=== PATIENT | female | born 1980 | race American Indian/Alaskan Native ===

== ENCOUNTER 2018-05-19 12:02 | Emergency (ER) | payer SELFPAY ==
[2018-05-19 12:21] VITALS: BP 126/77
== END 2018-05-19 12:30 | disposition left against medical advice (07) ==
LOC: ED 12:02
DX: R11.2 Nausea with vomiting, unspecified (principal); R19.7 Diarrhea, unspecified; Z53.21 Procedure and treatment not carried out due to patient leaving prior to being seen by health care provider

== ENCOUNTER 2020-02-01 14:42 | Emergency (ER) | payer SELFPAY ==
[2020-02-01 15:23] LABS: Basophils # (Auto) 0.1 K/mm3 (0.0-0.1); Basophils % (Auto) 1.1 % (0.0-1.8); Eosinophils # (Auto) 0.1 K/mm3 (0.0-0.4); Eosinophils % (Auto) 1.3 % (0.0-4.3); Lymphocytes # (Auto) 2.3 K/mm3 (1.2-5.4); Lymphocytes % (Auto) 32.3 % (13.4-35.0); Mean Corpuscular HGB Conc 32 % (30-34); Mean Corpuscular Volume 77 fl (79-97); Monocytes # (Auto) 0.3 K/mm3 (0.0-0.8); Monocytes % (Auto) 4.1 % (0.0-7.3); Platelet Count 228 K/mm3 (140-440); Red Cell Distribution Width 16.7 % (13.2-15.2)
[2020-02-01 15:45] LABS: Alanine Aminotransferase 14 units/L (7-56); Albumin 4.4 g/dL (3.9-5); BUN/Creatinine Ratio 6; Blood Urea Nitrogen 6 mg/dL (7-17); Calcium 9.5 mg/dL (8.4-10.2); Hemolysis Index 30
[2020-02-01] MEDS ORDERED: INSULIN REGULAR, HUMAN 100 UNITS/1 ML IV ONE (16:51)
--- NOTE | 2020-02-01 17:11 | Emergency Department Report ---
ED General Adult HPI - General Chief complaint: Hyperglycemia Stated complaint: SUGAR HIGH Time Seen by Provider: 02/01/20 16:50 Source: patient Mode of arrival: Ambulatory Limitations: No Limitations - History of Present Illness Initial comments: 39-year-old female with a past medical history of obesity and recent diagnosis of diabetes and hypertension (diagnosed yesterday) presents to the hospital with persistently elevated glucose. Patient has been having increased urinary frequency since August and dry mouth since November. Symptoms have progressively worsened and therefore she went to urgent care yesterday and had a sugar in the 500s. She was diagnosed with diabetes and sent to [facility] for treatment. Patient received insulin IV fluids in the ED and glucose was 240 prior to discharge. She was discharged on metformin 850 mg twice daily and glipizide 5m every morning. Patient took 2 doses of metformin and 1 dose of glipizide yesterday after discharge from the hospital and 1 dose of metformin and glipizide this a.m. her glucose has remained in the 400-500 and occasionally reading high on the monitor. Patient complains of some lightheadedness and persistent dry mouth. She is also states she has had very little food intake. She was not started on any blood pressure medication. patient denies pain nausea, vomiting - Related Data Previous Rx's Medication Instructions Recorded Last Taken Type Insulin NPH/Regular [Novolin 70/30] 15 unit SUB-Q TIDAC #1 vial 02/01/20 Unknown Rx Syringe-Needle,Insulin,0.5 ml 1 each MC TID #1 box 02/01/20 Unknown Rx [Insulin Syringe/Needle 0.5 ML] Allergies Allergy/AdvReac Type Severity Reaction Status Date / Time No Known Allergies Allergy Unverified 05/19/18 12:19 ED Review of Systems ROS: Stated complaint: SUGAR HIGH Other details as noted in HPI Comment: All other systems reviewed and negative ED Past Medical Hx - Past Medical History Previous Medical History?: Yes Hx Hypertension: Yes Hx Diabetes: Yes - Surgical History Past Surgical History?: Yes Additional Surgical History: C/S, tubal ligation - Social History Smoking Status: Never Smoker Substance Use Type: None - Medications Home Medications: Home Medications Medication Instructions Recorded Confirmed Last Taken Type Insulin NPH/Regular [Novolin 70/30] 15 unit SUB-Q TIDAC #1 vial 02/01/20 Unknown Rx Syringe-Needle,Insulin,0.5 ml 1 each TID #1 box 02/01/20 Unknown Rx [Insulin Syringe/Needle 0.5 ML] ED Physical Exam - General Limitations: No Limitations - Other Other exam information: General: No acute distress Head: Atraumatic Eyes: normal appearance ENT: Dry mucous membranes Neck: Normal appearance, no midline tenderness Chest: Clear to auscultation bilaterally CV: Regular rate and rhythm Abdomen: Soft, normal bowel sounds, nontender, nondistended, no rebound or guarding Back: Normal inspection Extremity: Normal inspection, full range of motion Neuro: Alert O x 3, no facial asymmetry, speech clear, no gross motor sensory deficit Psych: Appropriate behavior Skin: No rash ED Course Vital Signs 02/01/20 02/01/20 02/01/20 14:49 17:24 19:00 Temperature 97.9 F Pulse Rate 94 H 90 Respiratory 20 18 19 Rate Blood Pressure 151/90 126/76 O2 Sat by Pulse 99 100 100 Oximetry 02/01/20 02/01/20 02/01/20 19:16 19:30 19:46 Temperature Pulse Rate 93 H 94 H 92 H Respiratory 14 21 15 Rate Blood Pressure 121/59 121/59 133/74 O2 Sat by Pulse 100 100 Oximetry 02/01/20 02/01/20 02/01/20 20:00 20:16 20:30 Temperature Pulse Rate 85 84 84 Respiratory 18 21 15 Rate Blood Pressure 133/74 131/65 131/65 O2 Sat by Pulse Oximetry 02/01/20 20:46 Temperature Pulse Rate 83 Respiratory 12 Rate Blood Pressure 131/65 O2 Sat by Pulse Oximetry ED Medical Decision Making - Lab Data Result diagrams: 02/01/20 14:58 02/01/20 14:58 Lab Results 02/01/20 02/01/20 02/01/20 Range/Units 14:58 14:58 14:58 WBC 7.2 (4.5-11.0) K/mm3 RBC 5.30 H (3.65-5.03) M/mm3 Hgb 13.0 (10.1-14.3) gm/dl Hct 41.0 (30.3-42.9) % MCV 77 L (79-97) fl MCH 25 L (28-32) pg MCHC 32 (30-34) % RDW 16.7 H (13.2-15.2) % Plt Count 228 (140-440) K/mm3 Lymph % (Auto) 32.3 (13.4-35.0) % [place] % (Auto) 4.1 (0.0-7.3) % Eos % (Auto) 1.3 (0.0-4.3) % Baso % (Auto) 1.1 (0.0-1.8) % Lymph # 2.3 (1.2-5.4) K/mm3 Greenlee # 0.3 (0.0-0.8) K/mm3 Eos # 0.1 (0.0-0.4) K/mm3 Baso # 0.1 (0.0-0.1) K/mm3 Seg Neutrophils % 61.2 (40.0-70.0) % Seg Neutrophils # 4.4 (1.8-7.7) K/mm3 VBG pH (7.320-7.420) Sodium 129 L (137-145) mmol/L Potassium 4.0 (3.6-5.0) mmol/L Chloride 91.6 L (98-107) mmol/L Carbon Dioxide 25 (22-30) mmol/L Anion Gap 16 mmol/L BUN 6 L (7-17) mg/dL Creatinine 1.0 (0.7-1.2) mg/dL Estimated GFR > 60 ml/min BUN/Creatinine Ratio 6 % Glucose 559 H* (65-100) mg/dL POC Glucose (70-105) Calcium 9.5 (8.4-10.2) mg/dL Total Bilirubin 0.50 (0.1-1.2) mg/dL AST 14 (5-40) units/L ALT 14 (7-56) units/L Alkaline Phosphatase 142 H (35-129) units/L Total Protein 7.8 (6.3-8.2) g/dL Albumin 4.4 (3.9-5) g/dL Albumin/Globulin Ratio 1.3 % HCG, Qual Negative (Negative) Urine Color (Yellow) Urine Turbidity (Clear) Urine pH (5.0-7.0) Ur Specific [place] (1.003-1.030) Urine Protein (Negative) mg/dL Urine Glucose (UA) (Negative) mg/dL Urine Ketones (Negative) mg/dL Urine Blood (Negative) Urine Nitrite (Negative) Urine Bilirubin (Negative) Urine Urobilinogen (<2.0) mg/dL Ur Leukocyte Esterase (Negative) Urine WBC (Auto) (0.0-6.0) /HPF Urine RBC (Auto) (0.0-6.0) /HPF Urine Mucus /HPF 02/01/20 02/01/20 02/01/20 Range/Units 14:58 15:00 17:24 WBC (4.5-11.0) K/mm3 RBC (3.65-5.03) M/mm3 Hgb (10.1-14.3) gm/dl Hct (30.3-42.9) % MCV (79-97) fl MCH (28-32) pg MCHC (30-34) % RDW (13.2-15.2) % Plt Count (140-440) K/mm3 Lymph % (Auto) (13.4-35.0) % Greenlee % (Auto) (0.0-7.3) % Eos % (Auto) (0.0-4.3) % Baso % (Auto) (0.0-1.8) % Lymph # (1.2-5.4) K/mm3 Greenlee # (0.0-0.8) K/mm3 Eos # (0.0-0.4) K/mm3 Baso # (0.0-0.1) K/mm3 Seg Neutrophils % (40.0-70.0) % Seg Neutrophils # (1.8-7.7) K/mm3 VBG pH 7.387 (7.320-7.420) Sodium (137-145) mmol/L Potassium (3.6-5.0) mmol/L Chloride (98-107) mmol/L Carbon Dioxide (22-30) mmol/L Anion Gap mmol/L BUN (7-17) mg/dL Creatinine (0.7-1.2) mg/dL Estimated GFR ml/min BUN/Creatinine Ratio % Glucose (65-100) mg/dL POC Glucose > 500 H (70-105) Calcium (8.4-10.2) mg/dL Total Bilirubin (0.1-1.2) mg/dL AST (5-40) units/L ALT (7-56) units/L Alkaline Phosphatase (35-129) units/L Total Protein (6.3-8.2) g/dL Albumin (3.9-5) g/dL Albumin/Globulin Ratio % HCG, Qual (Negative) Urine Color Straw (Yellow) Urine Turbidity Clear (Clear) Urine pH 6.0 (5.0-7.0) Ur Specific [place] 1.016 (1.003-1.030) Urine Protein <15 mg/dl (Negative) mg/dL Urine Glucose (UA) >=500 (Negative) mg/dL Urine Ketones Tr (Negative) mg/dL Urine Blood Neg (Negative) Urine Nitrite Neg (Negative) Urine Bilirubin Neg (Negative) Urine Urobilinogen < 2.0 (<2.0) mg/dL Ur Leukocyte Esterase Neg (Negative) Urine WBC (Auto) < 1.0 (0.0-6.0) /HPF Urine RBC (Auto) 2.0 (0.0-6.0) /HPF Urine Mucus Few /HPF 02/01/20 Range/Units 21:08 WBC (4.5-11.0) K/mm3 RBC (3.65-5.03) M/mm3 Hgb (10.1-14.3) gm/dl Hct (30.3-42.9) % MCV (79-97) fl MCH (28-32) pg MCHC (30-34) % RDW (13.2-15.2) % Plt Count (140-440) K/mm3 Lymph % (Auto) (13.4-35.0) % Greenlee % (Auto) (0.0-7.3) % Eos % (Auto) (0.0-4.3) % Baso % (Auto) (0.0-1.8) % Lymph # (1.2-5.4) K/mm3 Greenlee # (0.0-0.8) K/mm3 Eos # (0.0-0.4) K/mm3 Baso # (0.0-0.1) K/mm3 Seg Neutrophils % (40.0-70.0) % Seg Neutrophils # (1.8-7.7) K/mm3 VBG pH (7.320-7.420) Sodium (137-145) mmol/L Potassium (3.6-5.0) mmol/L Chloride (98-107) mmol/L Carbon Dioxide (22-30) mmol/L Anion Gap mmol/L BUN (7-17) mg/dL Creatinine (0.7-1.2) mg/dL Estimated GFR ml/min BUN/Creatinine Ratio % Glucose (65-100) mg/dL POC Glucose 163 H (70-105) Calcium (8.4-10.2) mg/dL Total Bilirubin (0.1-1.2) mg/dL AST (5-40) units/L ALT (7-56) units/L Alkaline Phosphatase (35-129) units/L Total Protein (6.3-8.2) g/dL Albumin (3.9-5) g/dL Albumin/Globulin Ratio % HCG, Qual (Negative) Urine Color (Yellow) Urine Turbidity (Clear) Urine pH (5.0-7.0) Ur Specific [place] (1.003-1.030) Urine Protein (Negative) mg/dL Urine Glucose (UA) (Negative) mg/dL Urine Ketones (Negative) mg/dL Urine Blood (Negative) Urine Nitrite (Negative) Urine Bilirubin (Negative) Urine Urobilinogen (<2.0) mg/dL Ur Leukocyte Esterase (Negative) Urine WBC (Auto) (0.0-6.0) /HPF Urine RBC (Auto) (0.0-6.0) /HPF Urine Mucus /HPF - Medical Decision Making Patient with newly diagnosed diabetes uncontrolled with current oral medication. Glucose and symptoms improved with ED treatment of insulin and normal saline. No signs of DKA or acute infection at this time. Dr. Nino was kind enough to provide a consult and prescribed subcu insulin since patient is uncontrolled with oral medications. Patient also had elevated blood pressure upon arrival but subsequent repeat measurements with within normal range. Outpatient follow- up will be advised to primary care doctor for blood pressure recheck and for reassessment and adjustment of patient's diabetes medication - Differential Diagnosis DKA, hyperglycemia, UTI, dehydration Critical Care Time: No Critical care attestation.: If time is entered above; I have spent that time in minutes in the direct care of this critically ill patient, excluding procedure time. ED Disposition Clinical Impression: Uncontrolled diabetes mellitus Disposition: DC-01 TO HOME OR SELFCARE Is pt being admited?: No Does the pt Need Aspirin: No Condition: Stable Instructions: Diabetes Mellitus Type 2 in Adults (ED) Additional Instructions: Stop your recently prescribed metformin and glipizide. Take the insulin prescribed instead. Continue to monitor and record/document your glucose levels prior to your doctor follow-up. Follow-up with your doctor or doctor/clinic provided for further management and adjustments in your medication. Return if symptoms worsen as indicated by your discharge instructions. Prescriptions: Syringe-Needle,Insulin,0.5 ml [Insulin Syringe/Needle 0.5 ML] 1 each MC TID #1 box Insulin NPH/Regular [Novolin 70/30] 15 unit SUB-Q TIDAC #1 vial Referrals: PRIMARY MD RAYMON [Primary Care Provider] - 3-5 Days KASI BROWN MD [Staff Physician] - 3-5 Days [facility] [Provider Group] - 3-5 Days Time of Disposition: 21:19
[2020-02-01 17:49] LABS: Bilirubin,Urine NEG (Negative); Blood,Urine NEG (Negative); Color,Urine Straw (Yellow); Mucus,Urine FEW /HPF; Protein,Urine <15 mg/dL mg/dL (Negative); Urobilinogen,Urine < 2.0 mg/dL (<2.0); WBC,Urine < 1.0 /HPF (0.0-6.0)
[2020-02-01] MEDS: SODIUM CHLORIDE 0.9% 1000 ML 1,000 ML IV ONE ×4 (18:33→19:03)
--- NOTE | 2020-02-01 18:34 | Event Note ---
Date: 02/01/20 39-year-old female with a past medical history of obesity and recent diagnosis of diabetes and hypertension presents to ED for evaluation of uncontrolled diabetes. Patient treated with insulin therapy with normalization of serum glucose. Patient medically optimized and back to usual state of health. Patient discharged home and instructed to follow-up with primary care physician within 1 week with blood glucose measurements. Patient counseled regarding counting carbohydrates, and diabetic diet. Patient discharged home with insulin therapy. Patient counseled regarding balanced diet, and increase physical activity at discharge. General: No acute distress Head: Atraumatic Eyes: normal appearance ENT: Dry mucous membranes Neck: Normal appearance, no midline tenderness Chest: Clear to auscultation bilaterally CV: Regular rate and rhythm Abdomen: Soft, normal bowel sounds, nontender, nondistended, no rebound or guarding Back: Normal inspection Extremity: Normal inspection, full range of motion Neuro: Alert O x 3, no facial asymmetry, speech clear, no gross motor sensory deficit Psych: Appropriate behavior Skin: No rash
[2020-02-01 21:39] VITALS: BP 138/77
== END 2020-02-01 21:40 | disposition home or self-care (01) ==
LOC: ED 14:42
DX: E11.9 Type 2 diabetes mellitus without complications (principal); I10 Essential (primary) hypertension; Z79.4 Long term (current) use of insulin; Z98.51 Tubal ligation status
CPT/HCPCS: 36415; 80053; 81001; 82805; 82962; 84703; 85025; 96374; 99283; J7030; 96361; J1815

== ENCOUNTER 2021-06-17 02:01 | Emergency (ER) | payer BC ==
[2021-06-17 02:58] VITALS: BP 127/60
--- NOTE | 2021-06-17 03:40 | Emergency Department Report ---
ED General Adult HPI - General Chief complaint: Skin/Abscess/Foreign Body Stated complaint: LUMP UNDER LEFT BREAST Source: patient Mode of arrival: Ambulatory Limitations: No Limitations - History of Present Illness Initial comments: Patient is a 40-year-old -Citizen Of [place] female with a history of hypertension and [id number] diabetes who presents to the ED with complaint of acute onset persistent painful swelling mild erythematous maculopapular rash under the left breast for the last 2 days. Patient states that she is unable to wear her bra because of worsening pain and that she is unable to fall asleep as well. Patient denies fever, chills, nausea, vomiting, dizziness, syncope, chest pain, shortness of breath, nausea and vomiting, abdominal pain, heavy lifting or traumatic injury. MD Complaint: Painful swollen mildly erythematous rash under the left breast -: Sudden, days(s) (2) Location: chest (left breast pain due to erythematous rash) Radiation: non-radiation Severity scale (0 -10): 7 Quality: aching, sharp Consistency: constant Improves with: none Worsens with: none Associated Symptoms: denies other symptoms, rash (painful erythematous maculopapular rash under the left breast). denies: confusion, chest pain, cough, diaphoresis, fever/chills, headaches, loss of appetite, malaise, nausea/vomiting, shortness of breath, syncope, weakness Treatments Prior to Arrival: none - Related Data Previous Rx's Medication Instructions Recorded Last Taken Type Insulin NPH/Regular [Novolin 70/30] 15 unit SUB-Q TIDAC #1 vial 02/01/20 Unknown Rx Syringe-Needle,Insulin,0.5 ml 1 each MC TID #1 box 02/01/20 Unknown Rx [Insulin Syringe/Needle 0.5 ML] Ibuprofen [Motrin] 800 mg PO Q8HR PRN #30 tablet 06/17/21 Unknown Rx Sulfamethoxazole/Trimethoprim 1 each PO Q12H #20 tablet 06/17/21 Unknown Rx [Bactrim DS TAB] Allergies Allergy/AdvReac Type Severity Reaction Status Date / Time No Known Allergies Allergy Unverified 05/19/18 12:19 ED Review of Systems ROS: Stated complaint: LUMP UNDER LEFT BREAST Other details as noted in HPI Constitutional: denies: chills, fever Eyes: denies: eye pain, eye discharge, vision change ENT: denies: ear pain, throat pain Respiratory: denies: cough, shortness of breath, wheezing Cardiovascular: denies: chest pain, palpitations Endocrine: no symptoms reported Gastrointestinal: denies: abdominal pain, nausea, diarrhea Genitourinary: denies: urgency, dysuria, discharge Musculoskeletal: denies: back pain, joint swelling, arthralgia Skin: rash (Erythematous maculopapular painful rash under the left breast), change in color. denies: lesions Neurological: denies: headache, weakness, paresthesias Psychiatric: denies: anxiety, depression Hematological/Lymphatic: denies: easy bleeding, easy bruising ED Past Medical Hx - Past Medical History Hx Hypertension: Yes Hx Diabetes: Yes - Surgical History Additional Surgical History: C/S, tubal ligation - Social History Smoking Status: Never Smoker Substance Use Type: None - Medications Home Medications: Home Medications Medication Instructions Recorded Confirmed Last Taken Type Insulin NPH/Regular [Novolin 70/30] 15 unit SUB-Q TIDAC #1 vial 02/01/20 Unknown Rx Syringe-Needle,Insulin,0.5 ml 1 each MC TID #1 box 02/01/20 Unknown Rx [Insulin Syringe/Needle 0.5 ML] Ibuprofen [Motrin] 800 mg PO Q8HR PRN #30 tablet 06/17/21 Unknown Rx Sulfamethoxazole/Trimethoprim 1 each PO Q12H #20 tablet 06/17/21 Unknown Rx [Bactrim DS TAB] ED Physical Exam - General Limitations: No Limitations General appearance: alert, in no apparent distress - Head Head exam: Present: atraumatic, normocephalic, normal inspection - Eye Eye exam: Present: normal appearance, PERRL, EOMI Pupils: Present: normal accommodation - ENT ENT exam: Present: normal exam, normal orophraynx, mucous membranes moist, TM's normal bilaterally, normal external ear exam - Neck Neck exam: Present: normal inspection, full ROM - Respiratory Respiratory exam: Present: normal lung sounds bilaterally. Absent: respiratory distress, wheezes, rales, rhonchi, chest wall tenderness, accessory muscle use, decreased breath sounds, prolonged expiratory - Cardiovascular Cardiovascular Exam: Present: regular rate, normal rhythm, normal heart sounds. Absent: systolic murmur, diastolic murmur, rubs, gallop - GI/Abdominal GI/Abdominal exam: Present: soft, normal bowel sounds. Absent: tenderness, guarding, rebound, hyperactive bowel sounds, hypoactive bowel sounds - Extremities Exam Extremities exam: Present: normal inspection, full ROM, normal capillary refill - Back Exam Back exam: Present: normal inspection, full ROM. Absent: tenderness, CVA tenderness (R), CVA tenderness (L), muscle spasm, paraspinal tenderness, vertebral tenderness - Neurological Exam Neurological exam: Present: alert, oriented X3, CN II-XII intact, normal gait, reflexes normal - Psychiatric Psychiatric exam: Present: normal affect, normal mood, anxious - Skin Skin exam: Present: warm, dry, intact, normal color, rash (Mild erythematous maculopapular nonfluctuant rash under the left breast with localized tenderness), erythema. Absent: cyanosis, diaphoretic, urticaria, vesicles, petechiae, pallor, abrasion, ecchymosis ED Course Vital Signs 06/17/21 02:56 Temperature 98.6 F Pulse Rate 65 Respiratory 18 Rate Blood Pressure 127/60 O2 Sat by Pulse 99 Oximetry ED Medical Decision Making - Medical Decision Making This is a 40-year-old -Citizen Of [place] female with a history of hypertension and [id number] diabetes who presents to the ED with complaint of acute onset persistent painful swelling mild erythematous maculopapular rash under the left breast for the last 2 days. Patient states that she is unable to wear her bra because of worsening pain and that she is unable to fall asleep as well. In the ED, patient is alert and oriented x3 and is not in any distress. Based on the history and physical exam findings, the patient's symptoms are likely due to cellulitis following irritation from wearing bra. The patient was therefore discharged home on medications including oral antibiotics and pain medications and was advised to follow-up with her primary care physician in 5 to 7 days for reevaluation or return to the ED immediately if symptoms get worse. - Differential Diagnosis Cellulitis; cutaneous abscess; folliculitis; Critical care attestation.: If time is entered above; I have spent that time in minutes in the direct care of this critically ill patient, excluding procedure time. ED Disposition Clinical Impression: Cellulitis of left breast, Abscess of skin of breast Disposition: HOME / SELF CARE / HOMELESS Is pt being admited?: No Does the pt Need Aspirin: No Condition: Stable Instructions: Cellulitis, Adult, [id number], Skin Abscess, [id number] Additional Instructions: Your symptoms are likely due to cellulitis or skin infection under your breast due to irritation of your bra. Therefore take medications with food, drink plenty of fluids and follow-up with your primary care physician in 7 to 10 days for reevaluation. Return to the ED immediately if symptoms get worse. Prescriptions: Sulfamethoxazole/Trimethoprim [Bactrim DS TAB] 1 each PO Q12H #20 tablet Ibuprofen [Motrin] 800 mg PO Q8HR PRN #30 tablet PRN Reason: Pain , Severe (7-10) Referrals: [facility] [Provider Group] - 7-10 days Time of Disposition: 03:38 Print Language: GREEK
== END 2021-06-17 04:51 | disposition home or self-care (01) ==
LOC: ED 02:01
DX: N61.1 Abscess of the breast and nipple (principal); N61.0 Mastitis without abscess; I10 Essential (primary) hypertension; E11.8 Type 2 diabetes mellitus with unspecified complications; Z98.890 Other specified postprocedural states
CPT/HCPCS: 99281

== ENCOUNTER 2021-11-26 09:39 | Emergency (ER) | payer BC ==
[2021-11-26] MEDS ORDERED: IBUPROFEN 800 MG TAB PO ONE (11:08)
--- NOTE | 2021-11-26 11:44 | XRay Report ---
LEFT ANKLE 3 VIEWS INDICATION: left ankle pain. COMPARISON: None. IMPRESSION: There is moderate lateral soft tissue swelling. No acute osseous abnormality or joint p athology is detected. Small plantar spur is noted. Signer Name: Garry Rogers Jr, MD Signed: 11/26/2021 11:35 AM Workstation Name: [id number]
--- NOTE | 2021-11-26 12:30 | Emergency Department Report ---
ED Lower Extremity HPI - General Chief Complaint: Extremity Injury, Lower Stated Complaint: FELL INJURED LT ANKLE Time Seen by Provider: 11/26/21 11:02 Source: patient Mode of arrival: Wheelchair Limitations: No Limitations - History of Present Illness Initial Comments: This is a 40-year-old female nontoxic, well nourished in appearance, no acute signs of distress presents to the ED with c/o of left ankle pain 1 day. Patient stated that she had a trip and fall outside. Patient denies any other injuries or trauma. Patient denies any numbness, tingling, fever, chills, nausea, vomiting, chest pain, shortness of breath, headache, stiff neck. Patient denies any joint swelling or joint redness. Patient denies decreased range of motion. Patient stated has decreased gait due to pain. Patient denies any allergies. MD Complaint: ankle injury -: days(s) Injury: Ankle: Left Place: street/outdoors Severity: mild Severity scale (0 -10): 3 Improves With: immobilization Worsens With: weight bearing, movement, palpation Context: fall Associated Symptoms: swelling, able to partially bear weight. denies: snap/pop sensation, numbness, tingling, unable to bear weight - Related Data Previous Rx's Medication Instructions Recorded Last Taken Type Insulin NPH/Regular [Novolin 70/30] 15 unit SUB-Q TIDAC #1 vial 02/01/20 Unknown Rx Syringe-Needle,Insulin,0.5 ml 1 each MC TID #1 box 02/01/20 Unknown Rx [Insulin Syringe/Needle 0.5 ML] Ibuprofen [Motrin] 800 mg PO Q8HR PRN #30 tablet 06/17/21 Unknown Rx Sulfamethoxazole/Trimethoprim 1 each PO Q12H #20 tablet 06/17/21 Unknown Rx [Bactrim DS TAB] Naproxen 500 mg PO Q12H PRN #12 tab 11/26/21 Unknown Rx Allergies Allergy/AdvReac Type Severity Reaction Status Date / Time No Known Allergies Allergy Verified 11/26/21 09:54 ED Review of Systems ROS: Stated complaint: FELL INJURED LT ANKLE Other details as noted in HPI Comment: All other systems reviewed and negative Constitutional: denies: chills, fever Eyes: denies: eye pain, eye discharge, vision change ENT: denies: ear pain, throat pain Respiratory: denies: cough, shortness of breath, wheezing Cardiovascular: denies: chest pain, palpitations Endocrine: no symptoms reported Gastrointestinal: denies: abdominal pain, nausea, diarrhea Genitourinary: denies: urgency, dysuria, discharge Musculoskeletal: denies: back pain, joint swelling, arthralgia Skin: denies: rash, lesions Neurological: denies: headache, weakness, paresthesias Psychiatric: denies: anxiety, depression Hematological/Lymphatic: denies: easy bleeding, easy bruising ED Past Medical Hx - Past Medical History Hx Hypertension: Yes Hx Diabetes: Yes - Surgical History Past Surgical History?: No Additional Surgical History: C/S, tubal ligation - Social History Smoking Status: Never Smoker Substance Use Type: None - Medications Home Medications: Home Medications Medication Instructions Recorded Confirmed Last Taken Type Insulin NPH/Regular [Novolin 70/30] 15 unit SUB-Q TIDAC #1 vial 02/01/20 Unknown Rx Syringe-Needle,Insulin,0.5 ml 1 each MC TID #1 box 02/01/20 Unknown Rx [Insulin Syringe/Needle 0.5 ML] Ibuprofen [Motrin] 800 mg PO Q8HR PRN #30 tablet 06/17/21 Unknown Rx Sulfamethoxazole/Trimethoprim 1 each PO Q12H #20 tablet 06/17/21 Unknown Rx [Bactrim DS TAB] Naproxen 500 mg PO Q12H PRN #12 tab 11/26/21 Unknown Rx ED Physical Exam - General Limitations: No Limitations General appearance: alert, in no apparent distress - Head Head exam: Present: atraumatic, normocephalic - Eye Eye exam: Present: normal appearance - Neck Neck exam: Present: full ROM - Respiratory Respiratory exam: Absent: respiratory distress - Cardiovascular Cardiovascular Exam: Present: regular rate - Extremities Exam Extremities exam: Present: full ROM, tenderness, normal capillary refill. Absent: joint swelling, calf tenderness - Expanded Lower Extremity Exam Left Hip exam: Present: normal inspection, full ROM. Absent: tenderness, swelling Upper Leg exam: Present: normal inspection, full ROM. Absent: tenderness, swelling Knee exam: Present: normal inspection, full ROM. Absent: tenderness, swelling Lower Leg exam: Present: normal inspection, full ROM. Absent: tenderness, swelling Ankle exam: Present: full ROM, tenderness, swelling, ecchymosis. Absent: abrasion, laceration, deformity, crepidus, dislocation, erythema, anterior draw sign Foot/Toe exam: Present: normal inspection, full ROM. Absent: tenderness, swelling Neuro vascular tendon exam: Present: no vascular compromise Gait: Positive: observed and limited by pain - Back Exam Back exam: Present: normal inspection, full ROM. Absent: tenderness, CVA tenderness (R), CVA tenderness (L), muscle spasm, paraspinal tenderness, vertebral tenderness, rash noted - Neurological Exam Neurological exam: Present: alert, oriented X3 - Psychiatric Psychiatric exam: Present: normal affect, normal mood - Skin Skin exam: Present: warm, dry, intact, normal color. Absent: rash ED Course Vital Signs 11/26/21 11/26/21 09:51 11:17 Temperature 98.1 F Pulse Rate 80 Respiratory 14 20 Rate Blood Pressure 143/77 O2 Sat by Pulse 96 Oximetry - Reevaluation(s) Reevaluation #1: 11/26/21 12:29 Patient is speaking in full sentences with no signs of distress noted. ED Lower Extremity MDM - Radiology Data [facility] [address] [place] [address] XRay Report Signed Patient: DUANE VILLA MR#: [id number] : 1980 Acct:[id number] Age/Sex: 40 / F ADM Date: 11/26/21 Loc: ED Attending Dr: Ordering Physician: ASHA SHEPPARD NP Date of Service: 11/26/21 Procedure(s): XR ankle 3+V LT Accession Number(s): [id number] cc: ASHA SHEPPARD NP Fluoro Time In Minutes: LEFT ANKLE 3 VIEWS INDICATION: left ankle pain. COMPARISON: None. IMPRESSION: There is moderate lateral soft tissue swelling. No acute osseous abnormality or joint pathology is detected. Small plantar spur is noted. Signer Name: Garry Rogers Jr, MD Signed: 11/26/2021 11:35 AM Workstation Name: [id number] Transcribed By: TTR Dictated By: GARRY ROGERS JR, MD Electronically Authenticated By: GARRY ROGERS JR, MD Signed Date/Time: 11/26/21 1135 DD/ 113 TD/TT: - Medical Decision Making This is a 40-year-old female that presents with ankle injury. Patient is stable and was examined by me. I referred patient to an orthopedic doctor for further evaluation for possible MRI. X-ray has been obtained and dictated by the radiologist. Patient is notified of the x-ray report with noted by the patient. Patient does have normal gait with some tenderness and no joint swelling. No ecchymosis. no joint redness or swelling. Not warm to touch. No signs of c ellulites present. Patient received a ankle stirrup and crutches. Patient was educated how to use crutches by RN. Patient was instructed to RICE therapy. Patient received Motrin for pain. Patient is discharged with Naproxen. At time of discharge, the patient does not seem toxic or ill in appearance. No acute signs of distress noted. Patient agrees to discharge treatment plan of care. No further questions noted by the patient. Critical care attestation.: If time is entered above; I have spent that time in minutes in the direct care of this critically ill patient, excluding procedure time. ED Disposition Clinical Impression: Left ankle injury Qualifiers: Encounter type: initial encounter Qualified Code(s): S99.912A - Unspecified injury of left ankle, initial encounter Disposition: HOME / SELF CARE / HOMELESS Is pt being admited?: No Does the pt Need Aspirin: No Condition: Stable Instructions: RICE Therapy for Routine Care of Injuries, [id number], Crutch Use, Adult, [id number] Additional Instructions: Follow-up with a orthopedic doctor in 3-5 days or if symptoms worsen and continue return to emergency room as soon as possible. No physical activity that extremity until cleared by orthopedic doctor Prescriptions: Naproxen 500 mg PO Q12H PRN #12 tab PRN Reason: pain Referrals: PRIMARY CAREMD [Primary Care Provider] - 3-5 Days CHRISTAL ALBARRAN MD [Staff Physician] - 3-5 Days Forms: Work/School Release Form(ED) Time of Disposition: 12:33
[2021-11-26 13:50] VITALS: BP 126/66
== END 2021-11-26 13:46 | disposition home or self-care (01) ==
LOC: ED 09:39
DX: S99.912A Unspecified injury of left ankle, initial encounter (principal); I10 Essential (primary) hypertension; E11.9 Type 2 diabetes mellitus without complications; X58.XXXA Exposure to other specified factors, initial encounter; Y93.89 Activity, other specified; Y92.89 Other specified places as the place of occurrence of the external cause; Y99.8 Other external cause status
CPT/HCPCS: 99283